=== PATIENT | male | born 2000 ===

== ENCOUNTER → 2021-12-29 11:12 | Outpatient (CLI) | payer OTHER, SELFPAY ==
--- NOTE | ~2021-12-29 | MR_ITS ---
EXAMINATION: MR ankle LT wo con DATE: 12/29/2021 11:49 INDICATION: Sprain of calcaneofibular ligament of left ankle, sequela. Left ankle pain. TECHNIQUE: Magnetic resonance imaging (MRI) of the left ankle was performed without intravenous contr ast. Sequences included sagittal PD-weighted FS FSE, sagittal PD-weighted FSE, coronal PD-weighted FS FSE, coronal PD-weighted FSE, axial PD-weighted FS FSE, and axial PD-weighted FSE. COMPARISON: None. FINDINGS: Medial ankle ligaments: There are changes of sprain of the deltoid ligament characterized by thickening and increased signal intensity involving the superficial component and increased signal intensity and indistinct fibers of the deep component. There is edema-like marrow signal intensity in medial malleolus and lateral aspe ct of talus, consistent with stress reaction. Lateral ankle ligaments: There is a complete tear of anterior talofibular ligament. There is a complete tear of calcaneofibula r ligament. Posterior talofibular ligament is intact. There are changes of sprain of anterior tibiofi bular ligament characterized by thickening and increased signal intensity. Posterior tibiofibular lig ament is intact. Tendons: The medial and anterior ankle tendons, peroneal tendons, and Achilles tendon are normal. Plantar fascia: Normal. Bones/other: Bone alignment is normal. No fracture. There is minimal subchondral edema-like signal intensity in th e talar dome. Fluid: There are ankle and subtalar joint effusions. IMPRESSION: 1. Medial and lateral ankle sprains. Reviewed, dictated and finalized at location A.
== END ==
DX: S93.412S Sprain of calcaneofibular ligament of left ankle, sequela (principal)
CPT/HCPCS: 73721